=== PATIENT | male | born 1990 | race Caucasian/White ===

== ENCOUNTER 2019-02-14 12:29 | Emergency (ER) | payer MEDICARE, MEDICAID ==
[~2019-02-14] VITALS: Ht 170.2 cm; Wt 81.4 kg
[2019-02-14 12:31] VITALS: BP 108/76
[2019-02-14] MEDS ORDERED: PRED20TA PO (12:51)
== END 2019-02-14 13:13 | disposition home or self-care (01) ==
LOC: ER 12:30
DX: S50.862A Insect bite (nonvenomous) of left forearm, initial encounter (principal); F12.90 Cannabis use, unspecified, uncomplicated; F17.200 Nicotine dependence, unspecified, uncomplicated; Z79.899 Other long term (current) drug therapy; W57.XXXA Bitten or stung by nonvenomous insect and other nonvenomous arthropods, initial encounter; Y93.89 Activity, other specified; Y92.89 Other specified places as the place of occurrence of the external cause; Y99.9 Unspecified external cause status
CPT/HCPCS: 99283

== ENCOUNTER 2019-03-08 14:13 | Emergency (ER) | payer MEDICARE, MEDICAID ==
[~2019-03-08] VITALS: Ht 170.2 cm; Wt 80.5 kg
[2019-03-08 14:34] VITALS: BP 136/79
== END 2019-03-08 16:48 | disposition home or self-care (01) ==
LOC: ER 14:13
DX: L60.0 Ingrowing nail (principal); F12.90 Cannabis use, unspecified, uncomplicated; F17.200 Nicotine dependence, unspecified, uncomplicated
CPT/HCPCS: 99281

== ENCOUNTER 2021-10-24 17:56 | Emergency (ER) | payer MEDICARE, MEDICAID ==
[~2021-10-24] VITALS: Ht 170.2 cm; Wt 77.3 kg
[2021-10-24 18:07] VITALS: BP 127/76
== END 2021-10-24 19:42 | disposition home or self-care (01) ==
LOC: ER 17:56
DX: H92.02 Otalgia, left ear (principal); F12.90 Cannabis use, unspecified, uncomplicated; Z72.89 Other problems related to lifestyle
CPT/HCPCS: 99281

== ENCOUNTER 2022-01-25 14:31 | Emergency (ER) | payer MEDICARE, MEDICAID ==
[~2022-01-25] VITALS: Ht 170.2 cm; Wt 76.8 kg
[2022-01-25 14:46] VITALS: BP 128/75
[2022-01-25] MEDS ORDERED: normal saline 1000ML IV soln IVB ONE (15:10)
[2022-01-25] MEDS ORDERED: ondansetron/PF 4mg/2ml inj IV ONE (15:10)
--- NOTE | 2022-01-25 15:25 | NUR ---
IVP GIVEN BY RN
[2022-01-25 15:36] LABS: BASOPHILS % (AUTO) 0.5 % (0-1); EOSINOPHILS # (AUTO) 0.1 X10'3 (0-0.9); EOSINOPHILS % (AUTO) 1.3 % (0-6); HEMATOCRIT 44.2 % (42.0-52.0); HEMOGLOBIN 15.3 g/dl (14.0-17.9); LYMPHOCYTES # (AUTO) 1.6 X10'3 (1.1-4.8); MEAN CORPUSCULAR HGB CONC 34.5 g/dL (33.0-36.5); MEAN PLATELET VOLUME 8.6 FL (7.4-10.4); MONOCYTES # (AUTO) 0.4 X10'3 (0-0.9); MONOCYTES % (AUTO) 6.2 % (2-12); NEUTROPHILS # (AUTO) 4.3 X10'3 (1.8-7.7); PLATELET COUNT 198 X10'3 (140-440); RED BLOOD COUNT 5.08 X10'6 (4.70-6.10); RED CELL DISTRIBUTION WIDTH 13.8 % (11.5-14.5); WHITE BLOOD COUNT 6.5 X10'3 (4.5-11.0)
[2022-01-25 15:53] LABS: ALANINE AMINOTRANSFERASE 28 U/L (12-78); ALBUMIN 4.1 G/DL (3.4-5.0); ALBUMIN/GLOBULIN RATIO 1.1 (1.1-1.5); ALKALINE PHOSPHATASE 68 IU/L (46-116); ANION GAP 8 (8-16); ASPARTATE AMINO TRANSFERASE 11 U/L (10-37); BILIRUBIN,TOTAL 0.5 MG/DL (0.1-1.0); BLOOD UREA NITROGEN 11 MG/DL (7-18); BUN/CREATININE RATIO 11.3 (5.4-32.0); CALCIUM 8.7 MG/DL (8.5-10.1); CHLORIDE 106 MMOL/L (99-107); CREATINE KINASE 61 U/L (39-308); CREATININE 0.97 MG/DL (0.60-1.10); GLUCOSE 108 MG/DL (70-104); POTASSIUM 3.3 MMOL/L (3.5-5.1); SODIUM 144 MMOL/L (135-145); TOTAL CARBON DIOXIDE 30.4 MMOL/L (24-32); TOTAL PROTEIN 7.8 G/DL (6.4-8.2); eGFR > 90 ML/MIN
[2022-01-25] MEDS ORDERED: potassium Cl 20 mEq SR tablet PO STA (15:56)
--- NOTE | 2022-01-25 16:05 | NUR ---
po med given
--- NOTE | 2022-01-25 16:47 | NUR ---
IV DC PT BEING DISCHARGED. DRESSING APPLIED
== END 2022-01-25 16:49 | disposition home or self-care (01) ==
LOC: ER 14:32
DX: T67.5XXA Heat exhaustion, unspecified, initial encounter (principal); E86.0 Dehydration; E87.6 Hypokalemia; R42 Dizziness and giddiness; R51.9 Headache, unspecified; R11.0 Nausea; F12.90 Cannabis use, unspecified, uncomplicated; Z72.89 Other problems related to lifestyle; X58.XXXA Exposure to other specified factors, initial encounter; Y93.89 Activity, other specified; Y92.89 Other specified places as the place of occurrence of the external cause; Y99.8 Other external cause status
CPT/HCPCS: 36415; 80053; 82550; 85025; 96361; 96374; 99283; J2405; J7030